=== PATIENT | male | born 1950 | race African-American/Black ===

== ENCOUNTER 2017-09-28 16:35 | Inpatient (IN) ==
[2017-09-28] MEDS ORDERED: ASPIRIN CHEW 81 MG TABLET PO STA ×2 (17:08→18:10)
[2017-09-28] MEDS ORDERED: ONDANSETRON 4 MG/2 ML VIAL IV STA ×2 (17:08→18:10)
[2017-09-28] MEDS ORDERED: NITROGLYCERIN SL 0.4 MG TABLET SL STA ×3 (17:08→21:33)
[2017-09-28] MEDS ORDERED: NITROGLYCERIN SL 0.4 MG TABLET SL ONE ×2 (17:33→21:35)
[2017-09-28] MEDS ORDERED: ONDANSETRON 4 MG/2 ML VIAL ONE (17:33)
[2017-09-28] MEDS ORDERED: ASPIRIN 325 MG TABLET ONE (17:34)
[2017-09-28 17:58] LABS: Basophils % 0.5 % (0.0-0.8); Eosinophils % 0.5 % (0.00-10.9); Hematocrit 47.7 VOL% (42.0-52.0); Hemoglobin 15.9 GM/DL (14.0-18.0); Immature Granulocytes % 0.6 %; Immature Granulocytes Absolute 0.05 #; Lymphocytes # 1.8 10*3/uL (1.4-4.0); Lymphocytes % 23.6 % (21.2-54.2); Mean Corpuscular HGB Conc 33.3 GM/DL (32-36); Mean Corpuscular Hemoglobin 28 PG (27-34); Mean Corpuscular Volume 82.4 FL (87-102); Monocytes # 0.6 10*3/uL (0.11-0.8); Monocytes % 7.2 % (1.7-12.7); Neutrophils # 5.3 10*3/uL (1.4-7.4); Neutrophils % 67.6 % (38.7-73.9); Platelet Count 184 T/CUMM (130-400); Red Blood Count 5.79 MC/CUMM (3.8-5.5); Red Cell Distribution Width 13.8 % (9.3-17.3); White Blood Count 7.8 T/CUMM (4-12)
[2017-09-28 18:16] LABS: Alanine Aminotransferase 27 U/L (16-61); Albumin 3.8 G/DL (3.4-5.0); Alkaline Phosphatase 142 U/L (45-117); Aspartate Amino Transferase 18 U/L (0-37); Blood Urea Nitrogen 18 MG/DL (7-18); Calcium 8.9 MG/DL (8.5-10.1); Glucose 222 MG/DL (74-106); Osmolality,Calculated 281.8 MOS/KG (273-304); Potassium 3.5 MMOL/L (3.5-5.1); Sodium 137 MMOL/L (136-145); Total Protein 8.2 G/DL (6.4-8.3); Troponin I Only < 0.015 NG/ML (0.00-0.045)
[2017-09-28] MEDS ORDERED: PROMETHAZINE IV STA (18:24)
[2017-09-28] MEDS ORDERED: SODIUM CHLORIDE 0.9% 1,000 ML IV STA (18:24)
[2017-09-28] MEDS ORDERED: SODIUM CHLORIDE 0.9% IV STA (18:24)
[2017-09-28] MEDS ORDERED: PROMETHAZINE 25 MG/1 ML VIAL ONE (18:27)
[2017-09-28] MEDS ORDERED: MORPHINE 2 MG/1 ML SYRINGE IV STA (19:20)
[2017-09-28] MEDS ORDERED: MORPHINE 4 MG/1 ML VIAL ONE (19:31)
[2017-09-28] MEDS ORDERED: LIDOCAINE 2% VISCOUS 100 ML BOTTLE SWISH/SWAL STA (20:57)
[2017-09-28] MEDS ORDERED: NITROGLYCERIN DRIP 50 MG/250 ML BOTTLE IV PRN (21:47)
[2017-09-28] MEDS ORDERED: TICAGRELOR 90 MG TABLET PO STA (21:59)
[2017-09-28] MEDS ORDERED: HEPARIN 5,000 UNIT/1 ML VIAL IV ONE (21:59)
[2017-09-28] MEDS ORDERED: TICAGRELOR 90 MG TABLET ONE (22:03)
[2017-09-28] MEDS ORDERED: HEPARIN 5,000 UNIT/1 ML VIAL ONE ×2 (22:03→23:07)
[2017-09-28] MEDS ORDERED: MIDAZOLAM 2 MG/2 ML VIAL ONE (22:26)
[2017-09-28] MEDS ORDERED: LIDOCAINE 1%/EPI INJ 20 ML VIAL ONE (22:26)
[2017-09-28] MEDS ORDERED: fentaNYL 100 MCG/2 ML VIAL ONE (22:27)
[2017-09-28] MEDS ORDERED: MORPHINE 10 MG/1 ML VIAL ONE (22:36)
[2017-09-28] MEDS ORDERED: METOPROLOL TARTRATE 5 MG/5 ML VIAL IV ONE (22:38)
[2017-09-28] MEDS ORDERED: TIROFIBAN 5,000 MCG/100 ML PREMIX IV ONE (22:48)
[2017-09-28] MEDS ORDERED: HEPARIN/NACL 0.9% 2 UNITS/ML 0 ML IV ONE (23:07)
[2017-09-29] MEDS ORDERED: PANTOPRAZOLE 40 MG VIAL IV SCH (00:09)
[2017-09-29] MEDS ORDERED: ACETAMINOPHEN 325 MG TABLET PO PRN (00:12)
[2017-09-29] MEDS ORDERED: MAGNESIUM HYDROXIDE SUSP 30 ML UDCUP PO PRN (00:12)
[2017-09-29] MEDS ORDERED: ZALEPLON 5 MG CAPSULE PO PRN (00:12)
[2017-09-29] MEDS ORDERED: POTASSIUM CHLORIDE 20 MEQ TABLET PO PRN (00:12)
[2017-09-29] MEDS ORDERED: MORPHINE 4 MG/1 ML VIAL IV PRN (00:12)
[2017-09-29] MEDS ORDERED: MAGNESIUM SULF RIDER 2 GM in PREMIX 1 EACH IV PRN (00:12)
[2017-09-29] MEDS: ALUMINUM/MAGNES/SIMETH MAX STR 30 ML UDCUP PO PRN ×2 (00:19→08:29)
[2017-09-29] MEDS ORDERED: TIROFIBAN 5,000 MCG/100 ML PREMIX IV SCH (00:30)
[2017-09-29] MEDS ORDERED: SODIUM CHLORIDE 0.45% 1,000 ML IV SCH (00:30)
[2017-09-29] MEDS: cloNIDine 0.1 MG TABLET PO PRN ×3 (01:44→08:30)
[2017-09-29] MEDS ORDERED: ONDANSETRON 4 MG/2 ML VIAL IV PRN (04:19)
[2017-09-29] MEDS ORDERED: hydrALAZINE 20 MG/1 ML VIAL IV PRN (04:20)
[2017-09-29 05:48] LABS: Basophils % 0.1 % (0.0-0.8); Hematocrit 44.6 VOL% (42.0-52.0); Hemoglobin 15.2 GM/DL (14.0-18.0); Immature Granulocytes % 0.3 %; Immature Granulocytes Absolute 0.03 #; Lymphocytes # 0.6 10*3/uL (1.4-4.0); Mean Corpuscular HGB Conc 34.1 GM/DL (32-36); Mean Corpuscular Hemoglobin 27 PG (27-34); Mean Corpuscular Volume 80.5 FL (87-102); Monocytes # 0.3 10*3/uL (0.11-0.8); Monocytes % 3.6 % (1.7-12.7); Neutrophils # 8.2 10*3/uL (1.4-7.4); Platelet Count 192 T/CUMM (130-400); Red Blood Count 5.54 MC/CUMM (3.8-5.5); Red Cell Distribution Width 13.8 % (9.3-17.3); White Blood Count 9.2 T/CUMM (4-12)
[2017-09-29 06:53] LABS: Albumin 3.9 G/DL (3.4-5.0); Bilirubin,Total 0.5 MG/DL (0.2-1.0); Calcium 8.5 MG/DL (8.5-10.1); Osmolality,Calculated 278.1 MOS/KG (273-304); Potassium 3.9 MMOL/L (3.5-5.1); Total Protein 7.9 G/DL (6.4-8.3)
[2017-09-29] MEDS: INSULIN NPH/REGULAR 70/30 100 UNIT/ML SUBCUT SCH ×2 (08:29→22:00)
[2017-09-29] MEDS: ASPIRIN EC 81 MG TABLET PO SCH (08:29)
[2017-09-29] MEDS: LOSARTAN 25 MG TABLET PO SCH (08:30)
[2017-09-29] MEDS: CLOPIDOGREL 75 MG TABLET PO SCH (08:30)
[2017-09-29] MEDS: PANTOPRAZOLE 40 MG TABLET PO SCH (08:30)
[2017-09-29] MEDS: METOPROLOL TARTRATE 50 MG TABLET PO SCH ×2 (08:30→20:56)
[2017-09-29] MEDS: amLODIPine 5 MG TABLET PO SCH (08:30)
[2017-09-29] MEDS ORDERED: METOPROLOL TARTRATE 25 MG TABLET PO SCH (09:00)
[2017-09-29] MEDS ORDERED: TICAGRELOR 90 MG TABLET PO SCH (09:00)
[2017-09-29] MEDS: INSULIN REGULAR 100 UNIT/ML SUBCUT SCH ×3 (12:29→20:56)
[2017-09-29] MEDS: ROSUVASTATIN 20 MG TABLET PO SCH (20:56)
[2017-09-30] MEDS: INSULIN REGULAR 100 UNIT/ML SUBCUT SCH ×4 (08:03→22:11)
[2017-09-30] MEDS: ASPIRIN EC 81 MG TABLET PO SCH (08:04)
[2017-09-30] MEDS: PANTOPRAZOLE 40 MG TABLET PO SCH (08:04)
[2017-09-30] MEDS: LOSARTAN 25 MG TABLET PO SCH (08:04)
[2017-09-30] MEDS: amLODIPine 5 MG TABLET PO SCH (08:04)
[2017-09-30] MEDS: METOPROLOL TARTRATE 50 MG TABLET PO SCH ×2 (08:04→22:11)
[2017-09-30] MEDS: CLOPIDOGREL 75 MG TABLET PO SCH (08:04)
[2017-09-30] MEDS: INSULIN NPH/REGULAR 70/30 100 UNIT/ML SUBCUT SCH ×2 (08:04→22:11)
[2017-09-30 09:02] LABS: Basophils % 0.3 % (0.0-0.8); Eosinophils % 0.4 % (0.00-10.9); Hematocrit 46.7 VOL% (42.0-52.0); Hemoglobin 15.8 GM/DL (14.0-18.0); Immature Granulocytes % 0.4 %; Immature Granulocytes Absolute 0.03 #; Lymphocytes # 1.8 10*3/uL (1.4-4.0); Lymphocytes % 23.8 % (21.2-54.2); Mean Corpuscular HGB Conc 33.8 GM/DL (32-36); Mean Corpuscular Hemoglobin 28 PG (27-34); Mean Corpuscular Volume 81.4 FL (87-102); Mean Platelet Volume 11.8 FL (9.6-12.0); Monocytes # 0.7 10*3/uL (0.11-0.8); Monocytes % 9.5 % (1.7-12.7); Neutrophils % 65.6 % (38.7-73.9); Platelet Count 207 T/CUMM (130-400); Red Blood Count 5.74 MC/CUMM (3.8-5.5); Red Cell Distribution Width 14.3 % (9.3-17.3); White Blood Count 7.6 T/CUMM (4-12)
[2017-09-30 09:55] LABS: CKMB % 0.9 %; Calcium 8.2 MG/DL (8.5-10.1); Osmolality,Calculated 280.7 MOS/KG (273-304); Potassium 3.8 MMOL/L (3.5-5.1)
[2017-09-30 10:42] LABS: Risk Ratio 2.61; VLDL CHOLESTEROL 24.6 MG/DL
[2017-09-30] MEDS ORDERED: diphenhydrAMINE CAP 25 MG CAPSULE PO PRN (19:29)
[2017-09-30] MEDS: ROSUVASTATIN 20 MG TABLET PO SCH (22:11)
[2017-10-01 04:52] LABS: Basophils % 0.5 % (0.0-0.8); Eosinophils # 0.1 10*3/uL (0.0-0.87); Hematocrit 44.8 VOL% (42.0-52.0); Hemoglobin 15.1 GM/DL (14.0-18.0); Immature Granulocytes % 0.7 %; Immature Granulocytes Absolute 0.04 #; Lymphocytes % 32.3 % (21.2-54.2); Mean Corpuscular HGB Conc 33.7 GM/DL (32-36); Mean Corpuscular Hemoglobin 27 PG (27-34); Mean Corpuscular Volume 81.2 FL (87-102); Mean Platelet Volume 11.7 FL (9.6-12.0); Monocytes # 0.7 10*3/uL (0.11-0.8); Monocytes % 10.7 % (1.7-12.7); Neutrophils # 3.3 10*3/uL (1.4-7.4); Neutrophils % 54.8 % (38.7-73.9); Platelet Count 187 T/CUMM (130-400); Red Blood Count 5.52 MC/CUMM (3.8-5.5); Red Cell Distribution Width 14.2 % (9.3-17.3); White Blood Count 6.1 T/CUMM (4-12)
[2017-10-01 05:26] LABS: Blood Urea Nitrogen 27 MG/DL (7-18); Calcium 8.3 MG/DL (8.5-10.1); Glucose 129 MG/DL (74-106); Osmolality,Calculated 289.1 MOS/KG (273-304); Potassium 3.5 MMOL/L (3.5-5.1); Sodium 142 MMOL/L (136-145)
[2017-10-01] MEDS: CLOPIDOGREL 75 MG TABLET PO SCH (08:21)
[2017-10-01] MEDS: ASPIRIN EC 81 MG TABLET PO SCH (08:21)
[2017-10-01] MEDS: PANTOPRAZOLE 40 MG TABLET PO SCH (08:22)
[2017-10-01] MEDS: METOPROLOL TARTRATE 50 MG TABLET PO SCH (08:22)
[2017-10-01] MEDS: amLODIPine 5 MG TABLET PO SCH (08:22)
[2017-10-01] MEDS: LOSARTAN 25 MG TABLET PO SCH (08:22)
[2017-10-01] MEDS: INSULIN REGULAR 100 UNIT/ML SUBCUT SCH ×2 (08:23→11:41)
[2017-10-01] MEDS: INSULIN NPH/REGULAR 70/30 100 UNIT/ML SUBCUT SCH (08:23)
[2017-10-01 13:29] VITALS: BP 122/85
== END 2017-10-01 13:30 | disposition home or self-care (01) | DRG 247 ==
LOC: N.EDINP 16:35 → N.ED 16:35 → N.CC 22:26 → N.ED 22:26 → N.CC 23:56
PROVIDERS: ADMIT Internal Medicine Interventional Cardiology; ATTEND Internal Medicine Interventional Cardiology
PROC: CLCCHCL (ICD-10-PCS; 2017-09-28 22:45)

== ENCOUNTER 2019-06-15 21:43 | Observation (INO) ==
[2019-06-15] MEDS ORDERED: ALUM/MAG/SIMETH/LIDO VISC 1:1 30 ML BOTTLE PO STA (22:07)
[2019-06-15] MEDS ORDERED: RANITIDINE 150 MG TABLET PO STA (22:08)
[2019-06-15] MEDS ORDERED: ONDANSETRON 4 MG/2 ML VIAL IV STA (22:25)
[2019-06-15 22:45] LABS: Apearance,Urine Slightly Hazy (Clear); Bilirubin,Urine Negative (Negative); Blood, Urine Small mg/dL (Negative); Glucose,Urine (UA) 50 mg/dL (Negative); Ketones,Urine Negative (Negative); Mucus,Urine Occasional /LPF (Occasional); Nitrite,Urine Negative (Negative); Protein,Urine 30 MG/DL; RBC,Urine 1 /HPF (0-4); Urine Color Yellow (Yellow); Urine Specific Gravity 1.018 (1.001-1.035); Urine Urobilinogen < 2.0 EU/DL (0.2-1.0); WBC,Urine 1 /HPF (0-6)
[2019-06-15] MEDS ORDERED: SODIUM CHLORIDE 0.9% 1,000 ML IV STA (22:49)
[2019-06-15 23:16] LABS: Basophils % 0.3 % (0.0-0.8); Eosinophils % 0.4 % (0.00-10.9); Hematocrit 47.2 VOL% (42.0-52.0); Hemoglobin 15.3 GM/DL (14.0-18.0); Immature Granulocytes % 0.7 %; Immature Granulocytes Absolute 0.05 #; Lymphocytes # 1.9 10*3/uL (1.4-4.0); Lymphocytes % 24.9 % (21.2-54.2); Mean Corpuscular HGB Conc 32.4 GM/DL (32-36); Mean Platelet Volume 10.7 FL (9.6-12.0); Monocytes % 6.3 % (1.7-12.7); Neutrophils % 67.4 % (38.7-73.9); Platelet Count 198 T/CUMM (130-400); Red Blood Count 5.69 MC/CUMM (3.8-5.5); Red Cell Distribution Width 14.3 % (9.3-17.3); White Blood Count 7.5 T/CUMM (4-12)
[2019-06-15 23:36] LABS: Alanine Aminotransferase 31 U/L (16-61); Albumin 3.7 G/DL (3.4-5.0); Alkaline Phosphatase 97 U/L (45-117); Aspartate Amino Transferase 22 U/L (0-37); Bilirubin,Total < 0.39 MG/DL (0.2-1.0); Blood Urea Nitrogen 18 MG/DL (7-18); Calcium 8.7 MG/DL (8.5-10.1); Estimated Glom Filtration Rate 73 ML/MIN; Glucose 133 MG/DL (74-106); Osmolality,Calculated 286.1 MOS/KG (273-304); Total Protein 8.4 G/DL (6.4-8.3)
[2019-06-15] MEDS ORDERED: ONDANSETRON 4 MG/2 ML VIAL IV ONE (23:52)
[2019-06-16] MEDS ORDERED: SODIUM CHLORIDE 0.9% 1,000 ML IV STA (00:33)
[2019-06-16] MEDS ORDERED: MORPHINE 4 MG/1 ML VIAL IV STA (03:33)
[2019-06-16] MEDS ORDERED: ACETAMINOPHEN 325 MG TABLET PO PRN (03:48)
[2019-06-16] MEDS ORDERED: DEXTROSE 50% 25 GM/50 ML VIAL IV PRN (04:42)
[2019-06-16] MEDS ORDERED: GLUCAGON 1 MG VIAL IM PRN (04:42)
[2019-06-16] MEDS: SODIUM CHLORIDE 0.9% 1,000 ML IV SCH ×3 (05:15→20:15)
[2019-06-16] MEDS: POTASSIUM CHLORIDE 20 MEQ TABLET PO PRN ×3 (05:19→20:37)
[2019-06-16] MEDS ORDERED: PANTOPRAZOLE 40 MG TABLET PO SCH (09:00)
[2019-06-16] MEDS: CIPROFLOXACIN INJ 400 MG in PREMIX 1 EACH IV SCH ×2 (10:28→20:32)
[2019-06-16] MEDS: INSULIN REGULAR 100 UNIT/ML SUBCUT SCH ×4 (10:30→20:24)
[2019-06-16] MEDS: ENOXAPARIN 40 MG/0.4 ML SYRINGE SUBCUT SCH (10:31)
[2019-06-16] MEDS: metroNIDAZOLE INJ 500 MG in PREMIX 1 EACH IV SCH ×2 (12:00→19:28)
[2019-06-16] MEDS: MORPHINE 4 MG/1 ML VIAL IV PRN (12:36)
[2019-06-16] MEDS: ONDANSETRON 4 MG/2 ML VIAL IV PRN (12:37)
[2019-06-16 12:57] LABS: Basophils % 0.1 % (0.0-0.8); Hematocrit 46.4 VOL% (42.0-52.0); Hemoglobin 15.4 GM/DL (14.0-18.0); Immature Granulocytes % 0.4 %; Immature Granulocytes Absolute 0.04 #; Lymphocytes # 0.7 10*3/uL (1.4-4.0); Lymphocytes % 7.3 % (21.2-54.2); Mean Corpuscular HGB Conc 33.2 GM/DL (32-36); Mean Corpuscular Volume 81.3 FL (87-102); Mean Platelet Volume 11.4 FL (9.6-12.0); Monocytes % 4.5 % (1.7-12.7); Neutrophils % 87.7 % (38.7-73.9); Platelet Count 193 T/CUMM (130-400); Red Blood Count 5.71 MC/CUMM (3.8-5.5); Red Cell Distribution Width 14.5 % (9.3-17.3); White Blood Count 9.9 T/CUMM (4-12)
[2019-06-16] MEDS: hydrALAZINE 20 MG/1 ML VIAL IV PRN ×2 (13:05→20:25)
[2019-06-16 13:24] LABS: Albumin 3.8 G/DL (3.4-5.0); Bilirubin,Total 0.4 MG/DL (0.2-1.0); Calcium 8.2 MG/DL (8.5-10.1); Total Protein 8.6 G/DL (6.4-8.3)
[2019-06-16] MEDS ORDERED: NITROGLYCERIN SL 0.4 MG TABLET SL PRN (15:49)
[2019-06-16] MEDS: PANTOPRAZOLE 40 MG TABLET PO SCH (17:59)
[2019-06-16] MEDS: METOPROLOL TARTRATE 50 MG TABLET PO SCH (20:24)
[2019-06-16] MEDS: ROSUVASTATIN 20 MG TABLET PO SCH (20:24)
[2019-06-17] MEDS: SODIUM CHLORIDE 0.9% 1,000 ML IV SCH ×4 (01:16→21:47)
[2019-06-17] MEDS: metroNIDAZOLE INJ 500 MG in PREMIX 1 EACH IV SCH ×3 (03:40→20:24)
[2019-06-17] MEDS: MORPHINE 4 MG/1 ML VIAL IV PRN ×2 (03:43→12:53)
[2019-06-17] MEDS: ONDANSETRON 4 MG/2 ML VIAL IV PRN ×3 (03:45→21:48)
[2019-06-17] MEDS: hydrALAZINE 20 MG/1 ML VIAL IV PRN ×3 (04:21→17:41)
[2019-06-17 06:07] LABS: Basophils % 0.2 % (0.0-0.8); Hematocrit 44.7 VOL% (42.0-52.0); Hemoglobin 14.8 GM/DL (14.0-18.0); Immature Granulocytes % 0.4 %; Immature Granulocytes Absolute 0.04 #; Lymphocytes # 0.9 10*3/uL (1.4-4.0); Lymphocytes % 10.3 % (21.2-54.2); Mean Corpuscular HGB Conc 33.1 GM/DL (32-36); Mean Corpuscular Volume 81.6 FL (87-102); Mean Platelet Volume 11.1 FL (9.6-12.0); Monocytes % 8.3 % (1.7-12.7); Neutrophils % 80.8 % (38.7-73.9); Platelet Count 187 T/CUMM (130-400); Red Blood Count 5.48 MC/CUMM (3.8-5.5); Red Cell Distribution Width 14.6 % (9.3-17.3)
[2019-06-17] MEDS: PANTOPRAZOLE 40 MG TABLET PO SCH ×2 (06:10→17:41)
[2019-06-17 06:26] LABS: Albumin 3.3 G/DL (3.4-5.0); Bilirubin,Total 0.5 MG/DL (0.2-1.0); Osmolality,Calculated 276.2 MOS/KG (273-304); Total Protein 7.5 G/DL (6.4-8.3)
[2019-06-17] MEDS: INSULIN REGULAR 100 UNIT/ML SUBCUT SCH ×4 (08:09→21:45)
[2019-06-17] MEDS: CIPROFLOXACIN INJ 400 MG in PREMIX 1 EACH IV SCH ×2 (08:09→21:46)
[2019-06-17] MEDS: LOSARTAN 25 MG TABLET PO SCH (08:10)
[2019-06-17] MEDS: ASPIRIN EC 81 MG TABLET PO SCH (08:10)
[2019-06-17] MEDS: INSULIN NPH/REGULAR 70/30 100 UNIT/ML SUBCUT SCH ×2 (08:10→21:45)
[2019-06-17] MEDS: amLODIPine 10 MG TABLET PO SCH (08:10)
[2019-06-17] MEDS: METOPROLOL TARTRATE 50 MG TABLET PO SCH ×2 (08:10→21:46)
[2019-06-17] MEDS: ENOXAPARIN 40 MG/0.4 ML SYRINGE SUBCUT SCH (08:10)
[2019-06-17] MEDS ORDERED: CLOPIDOGREL 75 MG TABLET PO SCH (09:00)
[2019-06-17] MEDS: PROMETHAZINE 25 MG/1 ML VIAL IM PRN ×2 (09:23→18:16)
[2019-06-17] MEDS ORDERED: POLYETHYLENE GLYCOL POWDER 17 GM PACK PO SCH (10:00)
[2019-06-17] MEDS: ROSUVASTATIN 20 MG TABLET PO SCH (21:45)
[2019-06-17] MEDS: POLYETHYLENE GLYCOL POWDER 17 GM PACK PO SCH (21:46)
[2019-06-18] MEDS: metroNIDAZOLE INJ 500 MG in PREMIX 1 EACH IV SCH ×2 (03:55→12:18)
[2019-06-18 06:04] LABS: Basophils % 0.3 % (0.0-0.8); Hematocrit 47.1 VOL% (42.0-52.0); Hemoglobin 15.4 GM/DL (14.0-18.0); Immature Granulocytes % 0.5 %; Immature Granulocytes Absolute 0.04 #; Lymphocytes # 1.2 10*3/uL (1.4-4.0); Lymphocytes % 15.5 % (21.2-54.2); Mean Corpuscular HGB Conc 32.7 GM/DL (32-36); Mean Corpuscular Volume 81.5 FL (87-102); Mean Platelet Volume 11.1 FL (9.6-12.0); Monocytes % 11.6 % (1.7-12.7); Neutrophils % 72.1 % (38.7-73.9); Platelet Count 197 T/CUMM (130-400); Red Blood Count 5.78 MC/CUMM (3.8-5.5); Red Cell Distribution Width 14.6 % (9.3-17.3); White Blood Count 7.9 T/CUMM (4-12)
[2019-06-18 06:20] LABS: Calcium 8.1 MG/DL (8.5-10.1); Osmolality,Calculated 273.8 MOS/KG (273-304)
[2019-06-18] MEDS: PANTOPRAZOLE 40 MG TABLET PO SCH (06:22)
[2019-06-18] MEDS: INSULIN REGULAR 100 UNIT/ML SUBCUT SCH ×2 (08:29→12:24)
[2019-06-18] MEDS: SODIUM CHLORIDE 0.9% 1,000 ML IV SCH (09:28)
[2019-06-18] MEDS: CIPROFLOXACIN INJ 400 MG in PREMIX 1 EACH IV SCH (09:29)
[2019-06-18] MEDS: amLODIPine 10 MG TABLET PO SCH (09:31)
[2019-06-18] MEDS: ASPIRIN EC 81 MG TABLET PO SCH (09:31)
[2019-06-18] MEDS: POLYETHYLENE GLYCOL POWDER 17 GM PACK PO SCH (09:31)
[2019-06-18] MEDS: POTASSIUM CHLORIDE 20 MEQ TABLET PO PRN ×2 (09:31→12:19)
[2019-06-18] MEDS: METOPROLOL TARTRATE 50 MG TABLET PO SCH (09:31)
[2019-06-18] MEDS: ENOXAPARIN 40 MG/0.4 ML SYRINGE SUBCUT SCH (09:31)
[2019-06-18] MEDS: LOSARTAN 25 MG TABLET PO SCH (09:31)
[2019-06-18] MEDS: INSULIN NPH/REGULAR 70/30 100 UNIT/ML SUBCUT SCH (09:31)
[2019-06-18 12:55] VITALS: BP 173/87
== END 2019-06-18 15:01 | disposition home or self-care (01) ==
LOC: N.ED 21:43 → N.EDINP 21:43 → N.2W 06-16 04:24
PROVIDERS: ADMIT Internal Medicine; ATTEND Internal Medicine

== ENCOUNTER 2020-10-24 13:41 | Observation (INO) ==
[2020-10-24] MEDS ORDERED: SODIUM CHLORIDE 0.9% 500 ML IV STA ×2 (17:18→18:48)
[2020-10-24] MEDS ORDERED: PANTOPRAZOLE 40 MG VIAL IV STA (17:18)
[2020-10-24] MEDS ORDERED: MORPHINE 4 MG/1 ML VIAL IV STA ×2 (17:20→19:59)
[2020-10-24] MEDS ORDERED: METOCLOPRAMIDE 10 MG/2 ML VIAL IV STA (17:23)
[2020-10-24 18:12] LABS: Bacteria,Urine Occasional /HPF (Few); Bilirubin,Urine Negative (Negative); Blood, Urine Negative (Negative); Glucose,Urine (UA) 50 mg/dL (Negative); Ketones,Urine Negative (Negative); Nitrite,Urine Negative (Negative); Protein,Urine Negative; RBC,Urine 1 /HPF (0-4); Urine Appearance CLEAR (Clear); Urine Color Straw (Yellow); Urine Specific Gravity 1.012 (1.001-1.035); Urine Urobilinogen < 2.0 EU/DL (0.2-1.0)
[2020-10-24] MEDS ORDERED: ONDANSETRON 4 MG/2 ML VIAL IV STA ×2 (18:15→19:59)
[2020-10-24 18:19] LABS: Basophils % 0.1 % (0.0-0.8); Hematocrit 47.2 VOL% (42.0-52.0); Immature Granulocytes % 0.4 %; Immature Granulocytes Absolute 0.04 #; Lymphocytes # 0.8 10*3/uL (1.4-4.0); Lymphocytes % 7.9 % (21.2-54.2); Mean Corpuscular HGB Conc 31.8 GM/DL (32-36); Mean Corpuscular Volume 84.6 FL (87-102); Mean Platelet Volume 10.9 FL (9.6-12.0); Monocytes % 4.4 % (1.7-12.7); Neutrophils % 87.2 % (38.7-73.9); Platelet Count 224 T/CUMM (130-400); Red Blood Count 5.58 MC/CUMM (3.8-5.5); Red Cell Distribution Width 14.6 % (9.3-17.3); White Blood Count 9.7 T/CUMM (4-12)
[2020-10-24 18:36] LABS: Albumin 3.9 G/DL (3.4-5.0); Bilirubin,Total 0.5 MG/DL (0.2-1.0); Calcium 9.3 MG/DL (8.5-10.1); Osmolality,Calculated 275.8 MOS/KG (273-304); Potassium 3.3 MMOL/L (3.5-5.1); Total Protein 8.6 G/DL (6.4-8.2)
[2020-10-24] MEDS ORDERED: POTASSIUM CHLORIDE 20 MEQ TABLET PO STA (20:00)
[2020-10-24] MEDS ORDERED: PROMETHAZINE 25 MG/1 ML VIAL IM STA (22:25)
[2020-10-24] MEDS ORDERED: ALUMINUM/MAGNES/SIMETH MAX STR 30 ML UDCUP PO PRN (23:01)
[2020-10-24] MEDS ORDERED: diphenhydrAMINE CAP 25 MG CAPSULE PO PRN (23:01)
[2020-10-24] MEDS ORDERED: PROMETHAZINE 25 MG/1 ML VIAL IM PRN (23:01)
[2020-10-24] MEDS ORDERED: NICOTINE 21 MG/24 HR PATCH TRANSDERM PRN (23:01)
[2020-10-24] MEDS ORDERED: guaiFENesin/DM ER 600-30 MG TABLET PO PRN (23:01)
[2020-10-24] MEDS ORDERED: GLUCAGON 1 MG VIAL IM PRN (23:01)
[2020-10-24] MEDS ORDERED: DEXTROSE 50% 25 GM/50 ML VIAL IV PRN (23:01)
[2020-10-24] MEDS: SODIUM CHLORIDE 0.9% 1,000 ML IV SCH (23:46)
[2020-10-25 01:40] LABS: Barbiturates Screen,Urine Negative (Negative); Benzodiazepines Screen,Urine Negative (Negative); Cannabinoid Screen,Urine Negative (Negative); Opiate Screen,Urine Positive (Negative); Phencyclidine Screen,Urine Negative (Negative)
[2020-10-25 06:01] LABS: Calcium 8.8 MG/DL (8.5-10.1); Osmolality,Calculated 280.8 MOS/KG (273-304); Potassium 3.6 MMOL/L (3.5-5.1)
[2020-10-25] MEDS: ONDANSETRON 4 MG/2 ML VIAL IV PRN ×3 (06:17→23:24)
[2020-10-25] MEDS: MORPHINE 4 MG/1 ML VIAL IV PRN ×3 (06:17→23:25)
[2020-10-25] MEDS ORDERED: PANTOPRAZOLE 40 MG TABLET PO SCH (09:00)
[2020-10-25] MEDS: TAMSULOSIN 0.4 MG CAPSULE PO SCH (09:17)
[2020-10-25] MEDS: METOPROLOL TARTRATE 50 MG TABLET PO SCH ×2 (09:18→20:29)
[2020-10-25] MEDS: SODIUM CHLORIDE 0.9% 1,000 ML IV SCH ×2 (09:18→16:40)
[2020-10-25] MEDS: amLODIPine 5 MG TABLET PO SCH (09:18)
[2020-10-25] MEDS: PANTOPRAZOLE 40 MG TABLET PO SCH ×2 (10:02→20:29)
[2020-10-25] MEDS: INSULIN LISPRO 100 UNIT/ML SUBCUT SCH ×3 (12:00→20:29)
[2020-10-25] MEDS: hydroCHLOROthiazide 25 MG TABLET PO SCH (12:16)
[2020-10-25] MEDS ORDERED: ALUMINUM/MAGNES/SIMETH MAX STR 30 ML UDCUP PO PRN (12:25)
[2020-10-25] MEDS: SUCRALFATE 1 GM TABLET PO SCH ×3 (13:13→20:29)
[2020-10-25] MEDS ORDERED: INSULIN GLARGINE 100 UNIT/ML SUBCUT SCH (21:00)
[2020-10-26] MEDS: SODIUM CHLORIDE 0.9% 1,000 ML IV SCH ×2 (01:03→12:40)
[2020-10-26 05:58] LABS: Basophils % 0.2 % (0.0-0.8); Eosinophils % 0.2 % (0.00-10.9); Hematocrit 45.4 VOL% (42.0-52.0); Hemoglobin 15.1 GM/DL (14.0-18.0); Immature Granulocytes % 0.3 %; Immature Granulocytes Absolute 0.02 #; Lymphocytes # 1.1 10*3/uL (1.4-4.0); Lymphocytes % 17.4 % (21.2-54.2); Mean Corpuscular HGB Conc 33.3 GM/DL (32-36); Mean Corpuscular Volume 82.4 FL (87-102); Mean Platelet Volume 10.9 FL (9.6-12.0); Monocytes % 8.9 % (1.7-12.7); Platelet Count 206 T/CUMM (130-400); Red Blood Count 5.51 MC/CUMM (3.8-5.5); Red Cell Distribution Width 14.7 % (9.3-17.3); White Blood Count 6.2 T/CUMM (4-12)
[2020-10-26 06:23] LABS: Albumin 3.4 G/DL (3.4-5.0); Bilirubin,Total 0.8 MG/DL (0.2-1.0); Calcium 8.5 MG/DL (8.5-10.1); Osmolality,Calculated 279.8 MOS/KG (273-304); Potassium 3.5 MMOL/L (3.5-5.1); Total Protein 7.5 G/DL (6.4-8.2)
[2020-10-26] MEDS: SUCRALFATE 1 GM TABLET PO SCH ×3 (07:49→16:27)
[2020-10-26] MEDS: INSULIN LISPRO 100 UNIT/ML SUBCUT SCH ×3 (07:49→16:27)
[2020-10-26] MEDS ORDERED: chlorproMAZINE 25 MG TABLET PO PRN (08:34)
[2020-10-26] MEDS ORDERED: CLOPIDOGREL 75 MG TABLET PO SCH (09:00)
[2020-10-26] MEDS ORDERED: ASPIRIN EC 81 MG TABLET PO SCH (09:00)
[2020-10-26] MEDS: TAMSULOSIN 0.4 MG CAPSULE PO SCH (09:11)
[2020-10-26] MEDS: PANTOPRAZOLE 40 MG TABLET PO SCH (09:11)
[2020-10-26] MEDS: amLODIPine 5 MG TABLET PO SCH (09:11)
[2020-10-26] MEDS: hydroCHLOROthiazide 25 MG TABLET PO SCH (09:11)
[2020-10-26] MEDS: METOPROLOL TARTRATE 50 MG TABLET PO SCH (09:11)
[2020-10-26] MEDS ORDERED: MAGNESIUM HYDROXIDE SUSP 30 ML UDCUP PO PRN (10:32)
[2020-10-26 16:06] VITALS: BP 104/64
== END 2020-10-26 16:40 | disposition home or self-care (01) ==
LOC: N.EDINP 13:41 → N.ED 13:41 → N.3E 23:29
PROVIDERS: ADMIT Internal Medicine; ATTEND Internal Medicine

== ENCOUNTER 2021-05-24 13:37 | Observation (INO) ==
[2021-05-24 15:59] LABS: Basophils % 0.4 % (0.0-0.8); Eosinophils # 0.1 10*3/uL (0.0-0.87); Eosinophils % 0.8 % (0.00-10.9); Hematocrit 48.1 VOL% (42.0-52.0); Hemoglobin 15.6 GM/DL (14.0-18.0); Immature Granulocytes % 0.4 %; Immature Granulocytes Absolute 0.03 #; Lymphocytes # 1.5 10*3/uL (1.4-4.0); Lymphocytes % 19.2 % (21.2-54.2); Mean Corpuscular HGB Conc 32.4 GM/DL (32-36); Mean Corpuscular Volume 81.1 FL (87-102); Mean Platelet Volume 10.7 FL (9.6-12.0); Monocytes % 5.8 % (1.7-12.7); Neutrophils % 73.4 % (38.7-73.9); Platelet Count 236 T/CUMM (130-400); Red Blood Count 5.93 MC/CUMM (3.8-5.5); Red Cell Distribution Width 16.1 % (9.3-17.3); White Blood Count 7.7 T/CUMM (4-12)
[2021-05-24 16:28] LABS: Albumin 3.9 G/DL (3.4-5.0); Bilirubin,Total 0.5 MG/DL (0.20-1.00); Calcium 9.4 MG/DL (8.5-10.1); Potassium 4.2 MMOL/L (3.5-5.1); Total Protein 8.9 G/DL (6.4-8.2)
[2021-05-24] MEDS ORDERED: ONDANSETRON 4 MG/2 ML VIAL IV PRN (16:35)
[2021-05-24] MEDS ORDERED: SODIUM CHLORIDE 0.9% 1,000 ML IV STA (16:35)
[2021-05-24 16:41] LABS: Bacteria,Urine Occasional /HPF (Few); Bilirubin,Urine Negative (Negative); Blood, Urine Negative (Negative); Glucose,Urine (UA) Negative (Negative); Ketones,Urine Negative (Negative); Mucus,Urine Few /LPF (Occasional); Nitrite,Urine Negative (Negative); Protein,Urine 100 MG/DL; RBC,Urine 2 /HPF (0-4); Squamous Epithelial Cell,Urine Occasional /HPF (0-10); Urine Appearance CLEAR (Clear); Urine Color Yellow (Yellow); Urine Specific Gravity 1.018 (1.001-1.035); Urine Urobilinogen < 2.0 EU/DL (0.2-1.0)
[2021-05-24] MEDS ORDERED: GLUCAGON 1 MG VIAL IM PRN (16:44)
[2021-05-24] MEDS ORDERED: hydrALAZINE 20 MG/1 ML VIAL IV PRN (16:55)
[2021-05-24] MEDS ORDERED: DEXTROSE 50% 25 GM/50 ML SYRINGE IV PRN (17:01)
[2021-05-24 17:33] LABS: Barbiturates Screen,Urine Negative (Negative); Benzodiazepines Screen,Urine Negative (Negative); Cannabinoid Screen,Urine Negative (Negative); Opiate Screen,Urine Negative (Negative); Phencyclidine Screen,Urine Negative (Negative)
[2021-05-24] MEDS ORDERED: ALUM/MAG/SIMETH/LIDO VISC 1:1 30 ML BOTTLE PO STA (18:00)
[2021-05-24] MEDS: MORPHINE 2 MG/1 ML SYRINGE IV PRN ×2 (18:27→22:55)
[2021-05-24] MEDS: PANTOPRAZOLE 40 MG VIAL IV SCH (22:58)
[2021-05-24] MEDS: INSULIN LISPRO 100 UNIT/ML SUBCUT SCH (22:59)
[2021-05-24] MEDS: SODIUM CHLORIDE 0.9% 1,000 ML IV SCH (23:00)
[2021-05-25] MEDS: SODIUM CHLORIDE 0.9% 1,000 ML IV SCH ×2 (00:34→09:32)
[2021-05-25 01:21] LABS: Hematocrit 46.2 VOL% (42.0-52.0)
[2021-05-25 01:44] LABS: Albumin 3.6 G/DL (3.4-5.0); Bilirubin,Direct 0.13 MG/DL (0.0-0.20); Bilirubin,Indirect 0.3 MG/DL (0.0-1.0); Bilirubin,Total 0.4 MG/DL (0.20-1.00); Total Protein 8.2 G/DL (6.4-8.2)
[2021-05-25] MEDS ORDERED: chlorproMAZINE 25 MG TABLET PO PRN (04:46)
[2021-05-25 05:43] LABS: Basophils % 0.2 % (0.0-0.8); Hematocrit 45.4 VOL% (42.0-52.0); Hemoglobin 14.4 GM/DL (14.0-18.0); Immature Granulocytes % 0.6 %; Immature Granulocytes Absolute 0.06 #; Lymphocytes # 0.9 10*3/uL (1.4-4.0); Lymphocytes % 8.3 % (21.2-54.2); Mean Corpuscular HGB Conc 31.7 GM/DL (32-36); Mean Corpuscular Volume 82.2 FL (87-102); Mean Platelet Volume 10.8 FL (9.6-12.0); Monocytes % 4.5 % (1.7-12.7); Neutrophils % 86.4 % (38.7-73.9); Platelet Count 205 T/CUMM (130-400); Red Blood Count 5.52 MC/CUMM (3.8-5.5); Red Cell Distribution Width 15.9 % (9.3-17.3); White Blood Count 10.5 T/CUMM (4-12)
[2021-05-25 06:29] LABS: Calcium 8.4 MG/DL (8.5-10.1); Osmolality,Calculated 279.8 MOS/KG (273-304); Potassium 3.7 MMOL/L (3.5-5.1); Risk Ratio 1.8; Thyroid Stimulating Hormone 0.707 uIU/ml (0.358-3.74); VLDL Cholesterol 9.4 MG/DL
[2021-05-25 06:47] LABS: PT Patient Result 11.3 SECS (10.5-12.0); Partial Thromboplastin Time 31.9 SECS (23.8-32.1)
[2021-05-25] MEDS ORDERED: amLODIPine 10 MG TABLET PO SCH (09:00)
[2021-05-25] MEDS ORDERED: hydroCHLOROthiazide 25 MG TABLET PO SCH (09:00)
[2021-05-25 09:02] LABS: Hematocrit 47.3 VOL% (42.0-52.0); Hemoglobin 15.1 GM/DL (14.0-18.0)
[2021-05-25] MEDS: PANTOPRAZOLE 40 MG VIAL IV SCH (09:31)
[2021-05-25] MEDS: INSULIN LISPRO 100 UNIT/ML SUBCUT SCH ×2 (09:32→12:42)
[2021-05-25] MEDS: MORPHINE 2 MG/1 ML SYRINGE IV PRN (11:26)
[2021-05-25 12:19] VITALS: BP 179/85
== END 2021-05-25 15:32 | disposition home or self-care (01) ==
LOC: N.ED 13:37 → N.EDINP 13:37 → N.TELEN 20:58
PROVIDERS: ADMIT Internal Medicine; ATTEND Internal Medicine